=== PATIENT | male | born 1935 | race Caucasian/White ===

== ENCOUNTER 2020-12-18 15:57 | Observation (INO) | payer MEDICARE ==
[2020-12-18 16:55] LABS: #Eosinphils 0.1 thou/uL (0.0-0.7); #Lymphocytes 1.1 thou/uL (1.20-3.40); #Monocytes 0.7 thou/uL (0.11-0.59); #Neutrophils 4.9 thou/uL (1.40-6.50); %Basophils 0.6 % (0.0-1.0); %Eosinophils 1.3 % (0.0-10.0); %Lymphocytes 15.6 % (21.0-51.0); %Monocytes 10.1 % (0.0-10.0); %Neutrophils 72.5 % (42.0-75.0); Hemoglobin 8.4 g/dL (14.0-18.0); Mean Corpuscular HGB CONC 31.7 g/dL (32.0-36.0); Mean Corpuscular Hemoglobin 29.5 pg (27.0-31.0); Mean Corpuscular Volume 92.8 fL (78.0-98.0); Mean Platelet Volume 7.3 fL (7.4-10.4); Platelet Count 333 thou/uL (130-400); RBC Distribution Width 16.2 % (11.5-14.5); Red Blood Cell (RBC) Count 2.85 mill/uL (4.70-6.10); White Blood Cell (WBC) Count 6.8 thou/uL (4.8-10.8)
[2020-12-18 17:27] LABS: ALT (SGPT) 19 U/L (8-55); AST (SGOT) 28 U/L (5-34); Albumin 4.3 g/dL (3.4-4.8); Alkaline Phosphatase 112 U/L (40-110); Anion Gap 18 mmol/L (10-20); BUN (Urea Nitrogen) 23 mg/dL (8.4-25.7); Bilirubin, Total 0.6 mg/dL (0.2-1.2); Calc. Creatinine Clearance 0 mL/min (70-130); Calcium 9.7 mg/dL (7.8-10.44); Carbon Dioxide 20 mmol/L (23-31); Chloride 107 mmol/L (98-107); Globulin 4.1 g/dL (2.4-3.5); Glucose 105 mg/dL (83-110); Lipase 17 U/L (8-78); Potassium 5.2 mmol/L (3.5-5.1); Protein, Total 8.4 g/dL (5.8-8.1); Sodium 140 mmol/L (136-145)
[2020-12-18] MEDS ORDERED: Nitroglycerin 4.9 GM Bottle SL PRN (20:06)
[2020-12-18] MEDS ORDERED: HumaLOG 300 UNITS/3 ML VIAL SC PRN (20:06)
[2020-12-18] MEDS ORDERED: Dextrose 50% Abboject 50 ML SYRINGE SLOW IVP PRN (20:06)
[2020-12-18] MEDS ORDERED: Ondansetron ODT 4 MG TAB PO PRN (20:06)
[2020-12-18] MEDS ORDERED: Ondansetron PF 4 MG/2 ML Vial IVP PRN (20:06)
[2020-12-18] MEDS ORDERED: Calcium Carbonate 500 MG ChewTAB PO PRN (20:06)
[2020-12-18] MEDS ORDERED: Dextrose 5% in Water 1,000 ML IV PRN (20:06)
[2020-12-18] MEDS ORDERED: Lactated Ringer's 1,000 ML IV SCH (20:15)
[2020-12-18 20:51] LABS: Troponin I Less than 0.010 ng/mL (< 0.028)
[2020-12-18] MEDS ORDERED: Aspirin 325 MG TAB PO SCH (21:15)
[2020-12-18 22:20] VITALS: BMI 23.9
[2020-12-18 23:16] LABS: Troponin I 0.021 ng/mL (< 0.028)
[2020-12-19 04:48] LABS: #Eosinphils 0.1 thou/uL (0.0-0.7); #Lymphocytes 0.7 thou/uL (1.20-3.40); #Monocytes 0.6 thou/uL (0.11-0.59); #Neutrophils 4.1 thou/uL (1.40-6.50); %Basophils 0.2 % (0.0-1.0); %Eosinophils 1.3 % (0.0-10.0); %Lymphocytes 12.2 % (21.0-51.0); %Neutrophils 75.2 % (42.0-75.0); Hemoglobin 7.6 g/dL (14.0-18.0); Mean Corpuscular HGB CONC 31.5 g/dL (32.0-36.0); Mean Corpuscular Hemoglobin 28.8 pg (27.0-31.0); Mean Corpuscular Volume 91.2 fL (78.0-98.0); Mean Platelet Volume 7.3 fL (7.4-10.4); Platelet Count 271 thou/uL (130-400); RBC Distribution Width 16.1 % (11.5-14.5); Red Blood Cell (RBC) Count 2.65 mill/uL (4.70-6.10); White Blood Cell (WBC) Count 5.5 thou/uL (4.8-10.8)
[2020-12-19 05:00] LABS: SARS-CoV-2 PCR by NAA Not Detected (NotDetected)
[2020-12-19 05:16] LABS: Anion Gap 17 mmol/L (10-20); BUN (Urea Nitrogen) 23 mg/dL (8.4-25.7); Calc. Creatinine Clearance 40 mL/min (70-130); Calcium 8.9 mg/dL (7.8-10.44); Carbon Dioxide 18 mmol/L (23-31); Cardiac Risk 2.5 (Less than 4.5); Chloride 107 mmol/L (98-107); Cholesterol 104 mg/dl (< 200 Desired); Glucose 133 mg/dL (83-110); HDL Cholesterol 41 mg/dL (>60 Neg Risk); Iron 34 ug/dL (65-175); Iron Binding Capacity, Total 283 mcg/dL (261-462); LDL Cholesterol, Calculated 46 mg/dL; Magnesium 1.7 mg/dL (1.6-2.6); Phosphorus 3.3 mg/dL (2.3-4.7); Potassium 4.9 mmol/L (3.5-5.1); Sodium 137 mmol/L (136-145); Triglycerides 86 mg/dL (Less than 150)
[2020-12-19 05:41] LABS: Ferritin 592.41 ng/mL (22-322); Thyroid Stimulating Hormone 4.9761 uIU/mL (0.35-4.94); Vitamin B12 Less than 109 pg/mL (211-911)
[2020-12-19] MEDS ORDERED: Iron Polysaccharides Complex 150 MG CAP PO SCH (08:00)
[2020-12-19] MEDS ORDERED: metFORMIN 500 MG TAB PO SCH (09:00)
[2020-12-19] MEDS ORDERED: Enoxaparin Sodium 40 MG/0.4 ML SYRINGE SC SCH (09:00)
[2020-12-19] MEDS ORDERED: Ascorbic Acid 500 mg Chewable Tablet PO SCH (09:00)
[2020-12-19] MEDS ORDERED: Lisinopril 20 MG TAB PO SCH (09:00)
[2020-12-19] MEDS ORDERED: Cyanocobalamin (Vitamin B-12) 1,000 MCG TAB PO SCH (09:00)
[2020-12-19] MEDS ORDERED: Aspirin 81 mg Enteric Coated Tablet PO SCH (09:00)
[2020-12-19] MEDS ORDERED: Regadenoson 0.4 MG/5 ML SYRINGE ONE (10:39)
[2020-12-19 12:07] LABS: Free T4 (Free Thyroxine) 1.07 ng/dL (0.70-1.48)
[2020-12-19 19:03] VITALS: BP 142/66; TEMP 97.6
[2020-12-19] MEDS ORDERED: Atorvastatin Calcium 10 MG TAB PO SCH (21:00)
[2020-12-21 16:37] LABS: Hematocrit 22.9 % (37.5-51.0); RBC Folate Test Component 1057 ng/mL (>498)
== END 2020-12-19 19:30 | disposition home or self-care (01) ==
LOC: ERS 15:57 → EDBD 15:57 → 2SW 19:37
PROVIDERS: ADMIT Family Medicine; ATTEND Family Medicine
DX: R07.89 Other chest pain (principal); J90 Pleural effusion, not elsewhere classified; E11.9 Type 2 diabetes mellitus without complications; I10 Essential (primary) hypertension; E78.5 Hyperlipidemia, unspecified; N17.9 Acute kidney failure, unspecified; E87.5 Hyperkalemia; I44.0 Atrioventricular block, first degree; D64.9 Anemia, unspecified; Z79.82 Long term (current) use of aspirin; Z79.84 Long term (current) use of oral hypoglycemic drugs; Z79.899 Other long term (current) drug therapy; Z20.822 Contact with and (suspected) exposure to COVID-19
CPT/HCPCS: 36415; 36416; 71045; 78452; 80048; 80053; 80061; 82607; 82728; 82747; 83540; 83550; 83690; 83735; 84100; 84439; 84443; 84481; 84484; 85014; 85025; 87635; 93005; 93010; 93017; A9500; G0378; J2785; U0003; U0005

== ENCOUNTER 2021-01-04 12:23 | Outpatient (CLI) | payer BC, MEDICARE ==
[~2021-01-04 12:23] MED LIST: Iopamidol 370 76% 100 ML VIAL ONE
== END 2021-01-04 12:24 | disposition home or self-care (01) ==
LOC: CT 12:23
PROVIDERS: ATTEND Thoracic Surgery (Cardiothoracic Vascular Surgery)
DX: J90 Pleural effusion, not elsewhere classified (principal); R59.0 Localized enlarged lymph nodes; R60.0 Localized edema; J92.9 Pleural plaque without asbestos
CPT/HCPCS: 71270; 82565; Q9967